=== PATIENT | female | born 1945 | race Caucasian/White ===

== ENCOUNTER 2018-04-19 11:29 | Outpatient (CLI) | payer MEDICARE, OTHER, SELFPAY ==
--- NOTE | 2018-04-19 11:40 | DI.RAD_ITS ---
SYMPTOMS/DIAGNOSIS: INFLUENZA A WITH PNEUMONIA, J09.X1, PERSISTENT COUGH AND FATIGUE, S/P TREATMENT PA AND LATERAL CHEST: Comparison 05/04/13. The heart size and pulmonary vasculature are within normal limits. There is linear atelectasis in the left lung base. No focal consolidating infiltrates are seen to suggest pneumonia. No effusions or pneumothoraces are identified. The bones appear intact. IMPRESSION: No acute pulmonary process.
[2018-04-19 12:10] LABS: HCT 40.8 % (36.0-46.0); HGB 13.4 g/dL (12.0-15.5); Mean Corp. HGB Concentration 32.8 g/dL (32.0-36.0); Mean Corpuscular Volume 91.5 fL (80-95); Mean Platelet Volume 9.5 fL (8.0-11.0); Platelet Count 401 x1000/uL (130-400); RBC 4.46 m/cumm (4.00-5.20); RBC Distribution Width 13.4 % (11.7-14.6); White Blood Cell Count 7.96 k/cumm (4.4-10.8)
[2018-04-19 12:32] LABS: Absolute Eosinophil Count 0.08 k/cumm (0.0-0.7); Absolute Lymphocyte Count 2.63 k/cumm (1.2-3.4); Absolute Monocyte Count 0.32 k/cumm (0.11-0.7); Absolute Neutrophil Count 4.86 k/cumm (1.2-6.7); Atypical Lymphocytes % 4
[2018-04-19 12:33] LABS: Diff Comment Manual Differential; RBC Morphology Normal
[2018-04-19 13:25] LABS: BUN 12 mg/dL (7-18); CREATININE 0.79 mg/dL (0.55-1.02); Calcium 10.2 mg/dL (8.5-10.1); Chloride 99 mmol/L (98-107); Glucose 92 mg/dL (70-100); Potassium 3.7 mmol/L (3.5-5.1); Sodium 139 mmol/L (136-145)
== END 2018-04-19 11:49 ==
PROVIDERS: PCP Family Medicine; Visit Provider Family Medicine
DX: J09.X1 Influenza due to identified novel influenza A virus with pneumonia (principal); R05 Cough
CPT/HCPCS: 36415; 80048; 71046; 85025

== ENCOUNTER 2018-09-08 01:00 | Outpatient (CLI) | payer MEDICARE, OTHER, SELFPAY ==
--- NOTE | 2018-09-08 12:08 | DI.MAMMO_ITS ---
SYMPTOM/DIAGNOSIS: SCREENING, Z12.31 MAMMOGRAMS: Mammograms were interpreted according to the usual protocol including computer analysis with CAD system, tomosynthesis and C view imaging. Comparison is with the prior examinations. No suspicious masses or microcalcifications are seen. The nodular density in the upper posterior left breast appears stable. There has been no significant change compared to the prior examinations. IMPRESSION: No evidence for malignancy. Yearly mammography is recommended. Category 2, breast density B. MQSA ASSESSMENT OF FINDINGS: Negative with benign findings. Category 2. Patient will receive a letter notifying them of these results. BI-RADS category B. There are scattered areas of fibroglandular density.
== END 2018-09-08 01:20 ==
PROVIDERS: PCP Family Medicine; Visit Provider Family Medicine
DX: Z12.31 Encounter for screening mammogram for malignant neoplasm of breast (principal)
CPT/HCPCS: 77063; 77067

== ENCOUNTER 2019-05-31 12:53 | Outpatient (REF) | payer MEDICARE, OTHER, SELFPAY ==
[2019-05-31 17:50] LABS: HCT 42.3 % (36.0-46.0); HGB 14.1 g/dL (12.0-15.5); Mean Corp. HGB Concentration 33.3 g/dL (32.0-36.0); Mean Corpuscular Hemoglobin 30.9 pg (27.0-33.0); Mean Corpuscular Volume 92.8 fL (80-95); Mean Platelet Volume 11.3 fL (8.0-11.0); Platelet Count 264 x1000/uL (130-400); RBC 4.56 m/cumm (4.00-5.20); White Blood Cell Count 6.03 k/cumm (4.4-10.8)
[2019-05-31 17:54] LABS: Anion Gap 8.8 mmol/L (3-11); BUN 26 mg/dL (7-18); CO2 29.2 mmol/L (21.0-32.0); CREATININE 1.15 mg/dL (0.55-1.02); Calcium 10.1 mg/dL (8.5-10.1); Chloride 101 mmol/L (98-107); Estimated GFR 46.25 (mL/min/1.73m2); Glucose 97 mg/dL (74-106); Potassium 4.1 mmol/L (3.5-5.1); Sodium 139 mmol/L (136-145)
== END 2019-05-31 13:13 ==
LOC: NCHCN 12:53
PROVIDERS: PCP Family Medicine; Visit Provider Family Medicine
DX: I10 Essential (primary) hypertension (principal); R42 Dizziness and giddiness
CPT/HCPCS: 80048; 85027

== ENCOUNTER 2019-09-04 11:33 | Outpatient (CLI) | payer MEDICARE, OTHER, SELFPAY ==
--- NOTE | 2019-09-04 | DI.RAD_ITS ---
EXAM: XR FOOT LT COMPLETE CLINICAL HISTORY: LT FOOT JOINT PAIN M79.672 TECHNIQUE: 2D digital imaging was performed. COMPARISON: No exams were available for comparison FINDINGS: Heel spurs are seen. No fractures are identified. There are mild degenerative changes and mild trent llux valgus. There is dorsal dislocation at the PIP joint of the 2nd toe IMPRESSION: Dorsal dislocation at the 2nd PIP joint.
== END 2019-09-04 11:53 ==
PROVIDERS: PCP Family Medicine; Visit Provider Nurse Practitioner Family
DX: M79.672 Pain in left foot (principal); S93.115A Dislocation of interphalangeal joint of left lesser toe(s), initial encounter; M77.32 Calcaneal spur, left foot; M19.072 Primary osteoarthritis, left ankle and foot; M20.12 Hallux valgus (acquired), left foot
CPT/HCPCS: 73630

== ENCOUNTER 2019-09-15 09:39 | Outpatient (CLI) | payer MEDICARE, OTHER, SELFPAY ==
--- NOTE | 2019-09-15 09:00 | DI.RAD_ITS ---
EXAM: XR FOOT LT COMPLETE CLINICAL HISTORY: left second toe injury; dislocation TECHNIQUE: COMPARISON: CR XR FOOT LT COMPLETE from 09/04/2019 FINDINGS: Three views were obtained. The lateral view again shows an apparent dorsal subluxation or dislocatio n of the middle phalanx of the 2nd toe from the proximal phalanx. No significant change in appearanc e comparison with prior study. Moderate degenerative changes of the joints of foot again noted with moderate hallux valgus deformity. IMPRESSION:
--- NOTE | 2019-09-15 09:45 | DI.RAD_ITS ---
EXAM: XR TOE LT SECOND CLINICAL HISTORY: f/u TECHNIQUE: COMPARISON: CR XR FOOT LT COMPLETE from 09/15/2019 FINDINGS: Six views were obtained. These are labeled as post reduction. There is now visible fracture of the medial aspect of the base of the middle phalanx of the 2nd toe. There appears to be persistent dorsa l subluxation or dislocation at the PIP joint seen on the lateral views. IMPRESSION:
== END 2019-09-15 09:59 ==
PROVIDERS: PCP Family Medicine; Referring Provider Family Medicine; Visit Provider Student in an Organized Health Care Education/Training Program
DX: S93.115A Dislocation of interphalangeal joint of left lesser toe(s), initial encounter (principal); X58.XXXA Exposure to other specified factors, initial encounter; S92.522A Displaced fracture of middle phalanx of left lesser toe(s), initial encounter for closed fracture
CPT/HCPCS: 28660; 99213; L3260; 73630; 73660

== ENCOUNTER 2019-09-19 09:39 | Outpatient (REF) | payer MEDICARE, OTHER, SELFPAY ==
[2019-09-19 14:39] LABS: Anion Gap 6.9 mmol/L (3-11); BUN 26 mg/dL (7-18); CO2 29.1 mmol/L (21.0-32.0); CREATININE 1.03 mg/dL (0.55-1.02); Chloride 98 mmol/L (98-107); Estimated GFR 52.38 (mL/min/1.73m2); Glucose 101 mg/dL (74-106); Potassium 4.4 mmol/L (3.5-5.1); Sodium 134 mmol/L (136-145)
[2019-09-19 14:55] LABS: COMMENT (LAB VIEW ONLY) 49.29 mg/dL; PROTEIN 10.6 mg/dL; Prot/Crea Ur Ratio 0.21
== END 2019-09-19 09:59 ==
LOC: NCHCN 09:39
PROVIDERS: PCP Family Medicine; Visit Provider Family Medicine
DX: N02.8 Recurrent and persistent hematuria with other morphologic changes (principal)
CPT/HCPCS: 80048; 82565; 84156

== ENCOUNTER 2019-09-28 10:38 | Outpatient (CLI) | payer MEDICARE, OTHER, SELFPAY ==
--- NOTE | 2019-09-28 10:00 | DI.RAD_ITS ---
EXAM: XR TOE LT SECOND CLINICAL HISTORY: follow up toe dislocation. TECHNIQUE: 2D digital imaging was performed. COMPARISON: CR XR TOE LT SECOND from 09/15/2019 FINDINGS: A tiny fracture fragment is again noted at the medial corner of the base of the middle phalanx of the 2nd toe. The proximal interphalangeal joint space appears slightly widened. There is no dislocatio n. . DATA REPOSITORY: RADIATION DOSE DELIVERED:
== END 2019-09-28 10:58 ==
PROVIDERS: PCP Family Medicine; Referring Provider Family Medicine
DX: S93.11 Dislocation of interphalangeal joint (principal); X58.XXXD Exposure to other specified factors, subsequent encounter; S92.912D Unspecified fracture of left toe(s), subsequent encounter for fracture with routine healing
CPT/HCPCS: 99213; 73660

== ENCOUNTER 2020-01-19 10:49 | Outpatient (CLI) | payer MEDICARE, OTHER, SELFPAY ==
--- NOTE | 2020-01-19 08:45 | DI.RAD_ITS ---
EXAM: XR TOE LT SECOND CLINICAL HISTORY: f/u fracture dislocation of L 2nd PIP, cont'd pain. TECHNIQUE: 2D digital imaging was performed. COMPARISON: No exams were available for comparison FINDINGS: BONES: The nondisplaced fracture at the medial aspect of the base of the middle phalanx of the 2nd t oe is again noted. A remains nonunited. There is a triangular fragment at the lateral aspect of the head of the proximal phalanx of the 2nd toe which may represent a displaced fracture. This is of in determinate acuity. No other fracture or dislocation is identified. No bony destructive lesion is s een. JOINTS: No dislocation present. SOFT TISSUE: Normal. IMPRESSION: Fractures involving the left 2nd toe as described above. DATA REPOSITORY: RADIATION DOSE DELIVERED:
== END 2020-01-19 11:09 ==
PROVIDERS: PCP Family Medicine; Referring Provider Family Medicine; Visit Provider Student in an Organized Health Care Education/Training Program
DX: S92.592A Other fracture of left lesser toe(s), initial encounter for closed fracture (principal); S93.105D Unspecified dislocation of left toe(s), subsequent encounter; S92.502D Displaced unspecified fracture of left lesser toe(s), subsequent encounter for fracture with routine healing; X58.XXXD Exposure to other specified factors, subsequent encounter; I10 Essential (primary) hypertension
CPT/HCPCS: 99213; 73660

== ENCOUNTER 2020-04-17 18:30 | Outpatient (REF) | payer MEDICARE, OTHER, SELFPAY ==
[2020-04-17 15:57] LABS: HCT 42.5 % (36.0-46.0); HGB 14.2 g/dL (11.2-15.7); MCH 30.9 pg (27.0-33.0); MCHC 33.4 % (32.0-36.0); MCV 92.4 fL (80-95); Platelet Count 259 10^3/uL (130-400); RDW 12.7 % (11.7-14.6); RDW-SD 43.3 fL; WBC 5.89 10^3/uL (4.4-10.8)
[2020-04-17 16:02] LABS: Anion Gap 8.5 mmol/L (3-11); BUN 29 mg/dL (7-18); CO2 28.5 mmol/L (21.0-32.0); CREATININE 1.1 mg/dL (0.55-1.02); Calcium 10.6 mg/dL (8.5-10.1); Chloride 101 mmol/L (98-107); Estimated GFR 48.55 (mL/min/1.73m2); Glucose 103 mg/dL (74-106); Magnesium 1.7 mg/dL (1.8-2.4); Potassium 3.7 mmol/L (3.5-5.1); Sodium 138 mmol/L (136-145)
== END 2020-04-17 18:31 | disposition home or self-care (01) ==
LOC: NCHCN 18:30
PROVIDERS: PCP Family Medicine; Visit Provider Family Medicine
DX: I10 Essential (primary) hypertension (principal); N02.8 Recurrent and persistent hematuria with other morphologic changes; R42 Dizziness and giddiness
CPT/HCPCS: 80048; 85027; 83735

== ENCOUNTER 2020-04-25 01:43 | Outpatient (CLI) | payer MEDICARE, OTHER, SELFPAY ==
--- NOTE | 2020-04-25 11:35 | DI.MAMMO_ITS ---
EXAM: MG MAMMO SCREENING CLINICAL HISTORY: SCREENING, [facility],Z00.00. TECHNIQUE: Bilateral full field digital CC and MLO mammographic images were obtained with 3D tomosyn thesis and utilizing computer aided detection (CAD). COMPARISON: Prior mammograms dating back to 2010, the most recent being August 2018. FINDINGS: There is an unchanged stable appearing noncalcified nodule in the mid left breast, unchanged from 201 1 and therefore benign. There is also an unchanged smaller benign-appearing nodule in the opposite-r ight breast which is also unchanged from prior studies and therefore benign. There are no spiculated masses nor malignant appearing microcalcification groups. There is no signif icant architectural distortion nor skin thickening-retraction. IMPRESSION: Stable benign findings. No radiographic evidence of malignancy. BI-RADS Category 2 - Benign Findings Breast Density - Category B - Scattered areas of fibroglandular density Breast density Category C or D implies that the patient has dense breast tissue. Dense breast tissue can make it harder to find cancer on a mammogram. Dense breast tissue is also associated with an incr eased risk of breast cancer. This information about the result of the mammogram report was provided to the patient to raise their awareness. Use this report when you speak with the patient about their risks for breast cancer, which includes their family history. At that time, you may recommend additional screening tests (Ultrasoun d or MRI) as these tests may add significant information. A negative radiographic report should not delay biopsy if a dominant or clinically suspicious mass is present. Up to ten percent of cancers are not identified on mammography. A negative report may reinforce clinical impression. Adenosis and dense breasts may obscure an underlying neoplasm. False positive reports average 6 to 10%. Patient will receive a letter notifying them of these results.
== END 2020-04-25 01:44 ==
LOC: DI 01:44
PROVIDERS: PCP Family Medicine; Visit Provider Family Medicine
DX: Z12.31 Encounter for screening mammogram for malignant neoplasm of breast (principal)
CPT/HCPCS: 77063; 77067

== ENCOUNTER 2020-05-15 16:00 | Outpatient (REF) | payer MEDICARE, OTHER, SELFPAY ==
[2020-05-15 18:07] LABS: Albumin 4.1 g/dL (3.4-5.0); Anion Gap 8.7 mmol/L (3-11); BUN 23 mg/dL (7-18); CO2 30.3 mmol/L (21.0-32.0); CREATININE 1.4 mg/dL (0.55-1.02); Calcium 10.4 mg/dL (8.5-10.1); Chloride 102 mmol/L (98-107); Estimated GFR 36.76 (mL/min/1.73m2); Glucose 80 mg/dL (74-106); Magnesium 1.9 mg/dL (1.8-2.4); Potassium 4.2 mmol/L (3.5-5.1); Sodium 141 mmol/L (136-145)
[2020-05-15 18:18] LABS: PROTEIN < 6.0 mg/dL
[2020-05-15 18:26] LABS: COMMENT (LAB VIEW ONLY) 49.79 mg/dL
== END 2020-05-15 16:01 | disposition home or self-care (01) ==
LOC: NCHCN 16:00
PROVIDERS: PCP Family Medicine; Visit Provider Family Medicine
DX: E83.52 Hypercalcemia (principal); N02.8 Recurrent and persistent hematuria with other morphologic changes; E83.42 Hypomagnesemia
CPT/HCPCS: 80048; 82040; 82565; 83735; 84156

== ENCOUNTER 2020-06-24 04:18 | Outpatient (CLI) | payer MEDICARE, OTHER, SELFPAY ==
[2020-06-24 11:10] LABS: Anion Gap 10.3 mmol/L (3-11); BUN 17 mg/dL (7-18); CO2 27.7 mmol/L (21.0-32.0); Calcium 10.4 mg/dL (8.5-10.1); Chloride 105 mmol/L (98-107); Glucose 104 mg/dL (74-106); Potassium 4.7 mmol/L (3.5-5.1); Sodium 143 mmol/L (136-145)
[2020-06-24 16:11] LABS: Ionized Calcium 1.25 mmol/L (1.12-1.32)
[2020-06-25 12:00] LABS: Parathyroid Hormone,Intact 31 pg/mL (19-88)
== END 2020-06-24 04:19 | disposition home or self-care (01) ==
LOC: LBO 04:18
PROVIDERS: PCP Family Medicine; Visit Provider Family Medicine
DX: E83.52 Hypercalcemia (principal); N02.8 Recurrent and persistent hematuria with other morphologic changes; I10 Essential (primary) hypertension
CPT/HCPCS: 36415; 80048; 82330; 83970

== ENCOUNTER 2020-07-25 01:14 | Outpatient (CLI) | payer MEDICARE, OTHER, SELFPAY ==
--- NOTE | 2020-07-25 | DI.DEXA_ITS ---
Exam(s) XR DEXA BONE DENSITY W/WO CLAUDIO EXAM: XR DEXA BONE DENSITY W/WO CLAUDIO CLINICAL HISTORY: OTHER DISORDER BONE DENSITY,M85.88 TECHNIQUE: [employer] C densitometer COMPARISON: 25 August 2016 FINDINGS: Lateral view of the thoracic and lumbar spine shows no evidence of compression fractures. Bone mineral density measurements of the lumbar spine correspond to a total T-score of -1.3, in the o steopenic range. This is not significantly changed from 2017. Bone mineral density measurements of the left hip correspond to a total T-score of -1.4. The femora l neck T-score is -1.6, in the osteopenic range. This represents a 2.2 percent decrease when compar ed with the previous exam which is not statistically significant.. The left forearm bone mineral density measurements correspond to a T-score of the distal 3rd of -2.8, in the osteoporotic range. There has been 9.4 percent decrease in bone mineral density measurements when compared with the previous exam . IMPRESSION: Osteopenia of the lumbar spine and left hip without significant change. Osteoporosis of the left for earm with 9.4 percent decrease in density when compared with 2017.
== END 2020-07-25 01:34 ==
PROVIDERS: PCP Family Medicine; Visit Provider Family Medicine
DX: M81.0 Age-related osteoporosis without current pathological fracture (principal); M85.88 Other specified disorders of bone density and structure, other site
CPT/HCPCS: 77080

== ENCOUNTER 2021-03-12 20:32 | Outpatient (REF) | payer MEDICARE, OTHER, SELFPAY ==
[2021-03-12 20:42] LABS: COMMENT (LAB VIEW ONLY) 94.57 mg/dL; PROTEIN 7.9 mg/dL; Prot/Crea Ur Ratio 0.08
== END 2021-03-12 20:33 | disposition home or self-care (01) ==
LOC: LBN 20:32
PROVIDERS: PCP Family Medicine; Visit Provider Family Medicine
DX: N02.8 Recurrent and persistent hematuria with other morphologic changes (principal)
CPT/HCPCS: 82565; 84156

== ENCOUNTER 2021-04-28 12:42 | Outpatient (REF) | payer MEDICARE, OTHER, SELFPAY ==
[2021-04-28 16:54] LABS: ALT 18 U/L (14-59); AST 17 U/L (15-37); Alkaline Phosphatase 87 U/L (46-116); Anion Gap 10.3 mmol/L (3-11); BUN 20 mg/dL (7-18); Bilirubin, Total 0.7 mg/dL (0.2-1.0); CO2 25.7 mmol/L (21.0-32.0); Calcium 9.6 mg/dL (8.5-10.1); Chloride 102 mmol/L (98-107); Estimated GFR 54.05 (mL/min/1.73m2); Glucose 91 mg/dL (74-106); Magnesium 2.1 mg/dL (1.8-2.4); Potassium 4.2 mmol/L (3.5-5.1); Sodium 138 mmol/L (136-145); Total Protein 7.4 g/dL (6.4-8.2)
== END 2021-04-28 12:43 | disposition home or self-care (01) ==
LOC: NCHCN 12:42
PROVIDERS: PCP Family Medicine; Visit Provider Family Medicine
DX: E83.42 Hypomagnesemia (principal); E83.52 Hypercalcemia; N02.8 Recurrent and persistent hematuria with other morphologic changes
CPT/HCPCS: 80053; 83735

== ENCOUNTER 2022-02-11 14:30 | Outpatient (REF) | payer MEDICARE, OTHER, SELFPAY | END 2022-02-11 14:31 | disposition home or self-care (01) | LOC: LBN 14:30 | PROVIDERS: PCP Family Medicine; Visit Provider Physician Assistant Medical | DX: K65.1 Peritoneal abscess (principal) | CPT/HCPCS: 87070; 87205 ==

== ENCOUNTER → 2022-03-04 10:57 | Outpatient (BNVA) | payer MEDICARE, OTHER, SELFPAY | PROVIDERS: PCP Family Medicine; Referring Provider Family Medicine; Visit Provider Physical Therapy Assistant | DX: L02.211 Cutaneous abscess of abdominal wall (principal) | CPT/HCPCS: 99213 ==

== ENCOUNTER 2022-04-13 16:07 | Outpatient (REF) | payer MEDICARE, OTHER, SELFPAY ==
[2022-04-13 15:29] LABS: HCT 43.1 % (36.0-46.0); HGB 14.2 g/dL (11.2-15.7); MCH 30.8 pg (27.0-33.0); MCHC 32.9 % (32.0-36.0); MCV 94 fL (80-95); MPV 10.8 fL (8.0-11.0); Platelet Count 255 10^3/uL (130-400); RBC 4.61 10^6/uL (3.93-5.22); RDW 12.7 % (11.7-14.6); RDW-SD 43.6 fL; WBC 6.09 10^3/uL (4.4-10.8)
[2022-04-13 16:15] LABS: ALT 12 U/L (14-59); AST 17 U/L (15-37); Albumin 3.9 g/dL (3.4-5.0); Alkaline Phosphatase 91 U/L (46-116); Anion Gap 9.8 mmol/L (3-11); BUN 16 mg/dL (7-18); Bilirubin, Total 0.8 mg/dL (0.2-1.0); CO2 27.2 mmol/L (21.0-32.0); CREATININE 0.9 mg/dL (0.55-1.02); Calcium 9.7 mg/dL (8.5-10.1); Chloride 102 mmol/L (98-107); Estimated GFR 66.26 (mL/min/1.73m2); Glucose 116 mg/dL (74-106); Magnesium 2.1 mg/dL (1.8-2.4); NT-proBNP 269 pg/mL (<300); Potassium 4.2 mmol/L (3.5-5.1); Sodium 139 mmol/L (136-145); Total Protein 7.3 g/dL (6.4-8.2)
== END 2022-04-13 16:08 | disposition home or self-care (01) ==
LOC: NCHCN 16:07
PROVIDERS: PCP Family Medicine; Visit Provider Family Medicine
DX: R06.09 Other forms of dyspnea (principal); E83.42 Hypomagnesemia; E83.52 Hypercalcemia; I10 Essential (primary) hypertension
CPT/HCPCS: 80053; 85027; 83735; 83880

== ENCOUNTER 2022-04-27 01:09 | Outpatient (CLI) | payer MEDICARE, OTHER, SELFPAY ==
--- NOTE | 2022-04-27 | DI.MAMMO_ITS ---
Exam(s) MAMMO SCREENING EXAM: MAMMO SCREENING CLINICAL HISTORY: [facility] Z00.00, SCREENING FOR BREAST CANCER TECHNIQUE: Bilateral full field digital CC and MLO mammographic images were obtained with 3D tomosyn thesis and utilizing computer aided detection (CAD). COMPARISON: Available for comparison. FINDINGS: Masses/Architectural Distortion: There are stable well-circumscribed nodules in both breasts. No reddy picious nodules or areas of architectural distortion are present. Microcalcifications: No suspicious pleomorphic-type are seen. Skin Thickening/Nipple Retraction: None. IMPRESSION: 1. No significant interval change with no specific features of malignancy noted. 2. Unless there is more urgent need, screening mammography is recommended, as per [employer] guidelines. BI-RADS Category 2 - Benign Findings Breast Density - Category B - Scattered areas of fibroglandular density Breast density category C or D implies that the patient has dense breast tissue. Dense breast tissue is very common and is not abnormal but dense breast tissue can make it harder to find cancer on a ma mmogram. Also, dense breast tissue may increase their breast cancer risk. This information about the result of the mammogram report was provided to the patient to raise their awareness. Use this report when you speak with the patient about their risks for breast cancer, which includes their family hist ory. At that time, you may recommend for more screening tests (Ultrasound or MRI) as they might be us eful based on their risk. A negative radiographic report should not delay biopsy if a dominant or clinically suspicious mass is present. Up to ten percent of cancers are not identified on mammography. A negative report may reinforce clinical impression. Adenosis and dense breasts may obscure an underlying neoplasm. False positive reports average 6 to 10%. Patient will receive a letter notifying them of these results.
== END 2022-04-27 01:29 ==
LOC: DI 01:09
PROVIDERS: PCP Family Medicine; Visit Provider Family Medicine
DX: Z12.31 Encounter for screening mammogram for malignant neoplasm of breast (principal)
CPT/HCPCS: 77063; 77067

== ENCOUNTER 2022-05-15 11:33 | Outpatient (REF) | payer MEDICARE, OTHER, SELFPAY ==
[2022-05-15 18:08] LABS: Calculated LDL 170 mg/dL (<100); Cholesterol 281 mg/dL (<200); HDL Cholesterol 99 mg/dL (40-60); Triglyceride 63 mg/dL (<150)
== END 2022-05-15 11:34 | disposition home or self-care (01) ==
LOC: NCHCN 11:33
PROVIDERS: PCP Family Medicine; Visit Provider Nurse Practitioner Family
DX: E78.5 Hyperlipidemia, unspecified (principal)
CPT/HCPCS: 80061

== ENCOUNTER 2022-05-19 15:09 | Outpatient (REF) | payer MEDICARE, OTHER, SELFPAY | END 2022-05-19 15:10 | disposition home or self-care (01) | LOC: LBN 15:09 | PROVIDERS: PCP Family Medicine; Visit Provider Nurse Practitioner Family | DX: L08.89 Other specified local infections of the skin and subcutaneous tissue (principal) | CPT/HCPCS: 87077; 87070; 87186; 87205 ==

== ENCOUNTER 2022-07-14 11:56 | Outpatient (CLI) | payer MEDICARE, OTHER, SELFPAY ==
--- NOTE | 2022-07-14 | DI.RAD_ITS ---
Exam(s) XR KNEE RT 3V AP,LAT,JUMANA EXAM: XR KNEE RT 3V AP,LAT,JUMANA CLINICAL HISTORY: RT KNEE PAIN, M25.561. TECHNIQUE: 2D digital imaging was performed of the right knee. Three views obtained. AP, lateral an d PA tunnel views were obtained. COMPARISON: No priors for comparison. FINDINGS: BONES: No acute fracture is present. No bony destructive lesion is seen. There is an enthesophyte at the superior patella. JOINTS: The knee is normally aligned. No joint effusion is seen. SOFT TISSUE: Normal. IMPRESSION: No acute abnormality. DATA REPOSITORY: RADIATION DOSE DELIVERED:
== END 2022-07-14 12:16 ==
LOC: DI 11:57
PROVIDERS: PCP Family Medicine; Visit Provider Nurse Practitioner Family
DX: M25.561 Pain in right knee (principal)
CPT/HCPCS: 73562

== ENCOUNTER 2022-07-30 13:10 | Outpatient (CLI) | payer MEDICARE, OTHER, SELFPAY ==
--- NOTE | 2022-07-30 | DI.RAD_ITS ---
Exam(s) XR FOOT RT COMPLETE EXAM: XR FOOT RT COMPLETE CLINICAL HISTORY: GREAT TOE PAIN M79.676, TENDER AFTER TRAUMA. TECHNIQUE: 2D digital imaging was performed. COMPARISON: CR XR TOE LT SECOND from 01/19/2020 FINDINGS: 3 views No evidence of acute fracture nor diastasis of the Lisfranc joint. No radiopaque foreign body. No o sseous lesions. IMPRESSION: No obvious fractures. If clinically indicated dedicated views of the great toe can be performed. Th is may sometimes reveal fractures not evident on entire foot plain films. DATA REPOSITORY: RADIATION DOSE DELIVERED:
== END 2022-07-30 13:30 ==
LOC: DI 13:14
PROVIDERS: PCP Family Medicine; Visit Provider Family Medicine
DX: M79.674 Pain in right toe(s) (principal); S90.931A Unspecified superficial injury of right great toe, initial encounter; X58.XXXA Exposure to other specified factors, initial encounter
CPT/HCPCS: 73630

== ENCOUNTER 2023-10-28 13:07 | Outpatient (CLI) | payer MEDICARE, OTHER, SELFPAY ==
[2023-10-28 13:28] LABS: Calculated LDL 145 mg/dL (<100); Cholesterol 253 mg/dL (<200); Estimated GFR 57.66 (mL/min/1.73m2); HDL Cholesterol 90 mg/dL (40-60); Potassium 4.3 mmol/L (3.5-5.1); Triglyceride 90 mg/dL (<150)
[2023-10-28 14:05] LABS: Hemoglobin A1C 5.5 % (<5.7)
== END 2023-10-28 13:08 | disposition home or self-care (01) ==
LOC: LBO 13:08
PROVIDERS: PCP Nurse Practitioner Family; Visit Provider Nurse Practitioner Family
DX: Z13.1 Encounter for screening for diabetes mellitus (principal); N02.B9 Other recurrent and persistent immunoglobulin A nephropathy; Z13.6 Encounter for screening for cardiovascular disorders
CPT/HCPCS: 36415; 80061; 82565; 83036; 84132

== ENCOUNTER 2024-11-07 10:27 | Outpatient (CLI) | payer MEDICARE, OTHER, SELFPAY ==
--- NOTE | 2024-11-07 06:26 | DI.MAMMO_ITS ---
Exam(s) MAMMO SCREENING EXAM: MAMMO SCREENING CLINICAL HISTORY: screening,Z12.39. TECHNIQUE: Bilateral full field digital CC and MLO mammographic images were obtained with 3D tomosynthesis and utilizing computer aided detection (CAD). COMPARISON: Prior mammograms dating back to 2016 were reviewed. FINDINGS: There has been no significant change in the appearance and distribution of the fibroglandular tissue. Stable benign-appearing nodules in both breasts are again noted, unchanged in size. One of the small benign-appearing nodules in the right breast has acquired some internal calcification and is most probably of all fibroadenoma. There are no new spiculated masses nor new malignant appearing microcalcification groups. There is no significant architectural distortion nor skin thickening-retraction. IMPRESSION: Stable benign findings. No radiographic evidence of malignancy. BI-RADS Category 2 - Benign Findings Breast Density - Category B - There are scattered areas of fibroglandular density. Breast density Category C or D implies that the patient has dense breast tissue. Dense breast tissue can make it harder to find cancer on a mammogram. Dense breast tissue is also associated with an increased risk of breast cancer. This information about the result of the mammogram report was provided to the patient to raise their awareness. Use this report when you speak with the patient about their risks for breast cancer, which includes their family history. At that time, you may recommend additional screening tests (Ultrasound or MRI) as these tests may add significant information. A negative radiographic report should not delay biopsy if a dominant or clinically suspicious mass is present. Up to ten percent of cancers are not identified on mammography. A negative report may reinforce clinical impression. Adenosis and dense breasts may obscure an underlying neoplasm. False positive reports average 6 to 10%. Patient will receive a letter notifying them of these results.
== END 2024-11-07 10:47 ==
LOC: DI 10:28
PROVIDERS: PCP Nurse Practitioner Family; Visit Provider Nurse Practitioner Family
DX: Z12.31 Encounter for screening mammogram for malignant neoplasm of breast (principal); R92.323 Mammographic fibroglandular density, bilateral breasts
CPT/HCPCS: 77063; 77067

== ENCOUNTER 2024-11-07 11:56 | Outpatient (CLI) | payer MEDICARE, OTHER, SELFPAY ==
[2024-11-07 12:05] LABS: Hemoglobin A1C 5.1 % (<5.7)
[2024-11-07 12:25] LABS: Anion Gap 8.0 mmol/L (3-11); BUN 17 mg/dL (7-18); CO2 30.0 mmol/L (21.0-32.0); Calcium 9.8 mg/dL (8.5-10.1); Calculated LDL 127 mg/dL (<100); Chloride 101 mmol/L (98-107); Cholesterol 232 mg/dL (<200); Estimated GFR 51.11 (mL/min/1.73m2); Glucose 97 mg/dL (74-106); HDL Cholesterol 95 mg/dL (>or=50); Potassium 3.8 mmol/L (3.5-5.1); Sodium 139 mmol/L (136-145); Triglyceride 54 mg/dL (<150)
== END 2024-11-07 11:57 | disposition home or self-care (01) ==
LOC: LBO 11:56
PROVIDERS: PCP Nurse Practitioner Family; Visit Provider Nurse Practitioner Family
DX: Z13.1 Encounter for screening for diabetes mellitus (principal); Z13.6 Encounter for screening for cardiovascular disorders
CPT/HCPCS: 36415; 77063; 77067; 80048; 80061; 83036

== ENCOUNTER → 2025-01-18 11:04 | Outpatient (BNVA) | payer MEDICARE, OTHER, SELFPAY | PROVIDERS: PCP Nurse Practitioner Family; Referring Provider Nurse Practitioner Family; Visit Provider Physical Therapy Assistant | DX: Z12.11 Encounter for screening for malignant neoplasm of colon (principal) ==

== ENCOUNTER 2025-01-31 10:51 | Day surgery (SDC) | payer MEDICARE, OTHER, SELFPAY ==
[2025-01-31 11:13] VITALS: BP 151/80; PULSE 100; RESP 18; TEMP 36.7; O2SAT 98
[2025-01-31] MEDS: Lactated Ringers 1,000 ML 80 ML IV (11:41)
--- NOTE | 2025-01-31 12:26 | W.ANESPRE ---
General Info Date of Service Date Performed: 01/31/25 Height: 5 ft 3 in Weight: 68.7 kg Body Mass Index (BMI): 26.8 Surgical Procedure: Operation Date: 01/31/25 12:50 Proposed Procedure Side Surgeon p Colonoscopy Shira Ware MD Meds Allergies and Home Medications Allergies Allergy/AdvReac Type Severity Reaction Status Date / Time propoxyphene HCl (From Allergy Severe Skin Rash Verified 01/31/25 11:10 Darvon) adhesive Allergy Intermediate Other (See Verified 01/31/25 11:10 Comment) Home Medication ?Medication ?Instructions ?Recorded multivitamin 1 cap PO DAILY 05/04/13 omega-3 fatty acids 300 mg capsule 1 cap PO DAILY 05/04/13 (Fish Oil) magnesium oxide 250 mg PO DAILY 02/27/22 valsartan 160 mg tablet 160 mg PO DAILY #90 tabs 10/25/24 bisacodyl 5 mg tablet,delayed 5 mg PO ONCE Colonoscopy Bowel 01/18/25 release Prep #4 tabs polyethylene glycol 3350 17 238 g PO ONCE #238 grams 01/18/25 gram/dose oral powder Current Visit Medications: Current Medications Generic Name Dose Route Start Last Admin Trade Name Freq PRN Reason Stop Dose Admin Ringer's Solution 1,000 mls @ 80 mls/hr 01/31/25 06:00 01/31/25 11:41 IV 01/31/25 23:59 80 mls/hr INFUSION NATE Administration Sodium Chloride 0 ml 01/31/25 06:00 Normal Saline Flush 10 Ml Syr IV 01/31/25 23:59 PRN PRN Sodium Chloride 0 ml 01/31/25 06:00 Normal Saline 10 Ml Vial IJ 01/31/25 23:59 DIRECTED PRN Sterile Water 0 ml 01/31/25 06:00 Water,Injection,Sterile 10 Ml Vial IJ 01/31/25 23:59 DIRECTED PRN PFSH Active Problems Active Problems: Problem Status Onset Code Positive colorectal cancer screening using Cologuard test Acute R19.5 Hyperlipidemia Acute Hypertension Chronic GERD without esophagitis Acute K21.9 Obesity Chronic E66.9 Hypersensitivity angiitis Acute M31.0 IgA nephropathy Acute N02.B9 Senile osteoporosis Acute M81.0 Infected sebaceous cyst Acute L72.3, L08.9 Abdominal wall abscess Acute L02.211 Fracture of second toe, left, closed Acute S92.502A Dislocation of toe, left, closed Acute 09/02/19 S93.105A Medical History Medical History 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 No HRT. Hx of cervical cancer MARIA DE JESUS (obstructive sleep apnea) History of tobacco abuse Surgical History Surgical History Skin Cancer Removal excision of melanoma. section Abdominal hysterectomy 40yo ANDREW/BSO for cervical CA. Limited course of HRT after surgery. Colonoscopy - MAC (03/10/17) Appendectomy Tobacco Smoking/Tobacco Use Status: Former Tobacco Use Passive smoking exposure: Yes Second hand exposure: No Alcohol Alcohol Intake: current Alcohol intake frequency: 0-2 drinks per day Alcohol type: wine Substance Use Substance use: Never Vital Signs and Lab Results Vital Signs Most Recent Vital Signs in EMR: Most Recent Vital Signs Temp Pulse Resp BP Pulse Ox 36.7 C 100 H 18 151/80 H 98 01/31/25 11:13 01/31/25 11:13 01/31/25 11:13 01/31/25 11:13 01/31/25 11:13 Anesthesia Assessment and Plan Anesthesia History Personal History: No History of General Anesthesia Family History: No Family History of Anesthesia Complications Exercise Tolerance Exercise Tolerance: Metabolic Equivalents>4 Pertinent Negatives Pertinent Negatives: No Symptoms of GERD, No Major Cardiovascular Symptoms or Complaints and No Major Pulmonary Symptoms or Complaints Cardiac & Pulmonary Exam Cardiac Exam: Normal S1/S2 Heart Sounds Pulmonary Exam: Clear Bilateral Breath Sounds Implantable Cardiac Device Does patient have a Pacemaker or an ICD?: No Airway Exam Known Difficult Airway: No Mallampati Class: 3 Mouth Opening: Normal (> 3cm) Thyromental Distance: Less than 3 cm Neck Range of Motion: Full ROM Neck Circumference: Normal Teeth Condition: Normal Dentition ASA Classification ASA Score: ASA 2 Emergency Case?: No NPO Status NPO Status: NPO Clears >2 hours, Solids >8 hours Anesthesia Plan Resuscitation Status: Full Code Anesthesia Technique: General Anesthesia Airway Planned: Natural Airway Monitors Used: Standard Monitors
[2025-01-31 12:27] VITALS: BMI 26.8
--- NOTE | 2025-01-31 13:10 | BOWEL_PTH ---
PATIENT: Jacki Zaldivar LOC: [facility] U#:[id number] AGE/SX: 79/F ROOM: RE01/31/[address]: Shira Ware : 1945 BED: DIS: 01/31/2025 SPEC #: [id number] RECD: 01/31/25 17:53 STATUS: ALFONZO REQ #: [id number] SUBHA: 01/31/25 13:[address]: Shira Ware DEPT: Surgical Specimen RECD BY: Annie Armijo ENTERED: 01/31/25 17:53 SP TYPE: Bowel OTHR DR: Sergey Huff, RANDAL Tissues: 1 - BIOPSY BOWEL Procedures: GROSS AND MICRO LEVEL 4 Comments: [id number]
--- NOTE | 2025-01-31 13:22 | W.PM.DSUDISC ---
Date of service: 01/31/25 Discharge Plan Disposition Patient Disposition: Home Condition: Good Discharge Details Reason For Visit: Positive cologuard Attending Provider: Shira Ware Primary Care Provider: Sergey Huff Recommendations for Follow Up Recommended tests to be ordered by follow up provider: Follow up pathology Home Meds and New Rx's Prescriptions: Continued valsartan 160 mg tablet 160 mg PO DAILY Qty: 90 3RF magnesium oxide 250 mg magnesium tablet 250 mg PO DAILY multivitamin 1 EACH capsule 1 cap PO DAILY Fish Oil 300 MG capsule 1 cap PO DAILY Discontinued bisacodyl 5 mg tablet,delayed release (DR/EC) 5 mg PO ONCE Qty: 4 0RF Rx Instructions: Per Colonoscopy bowel prep instructions polyethylene glycol 3350 17 gram/dose powder 238 g PO ONCE Qty: 238 0RF Rx Instructions: For Colonoscopy bowel prep, as directed by office Discharge Instructions Instructions: Diverticulosis Additional Instructions: Your colonoscopy went well today. You did have evidence of 1 small polyp which was removed. We will send this polyp to pathology. Once these results return we will contact you regarding recommendations for a repeat colonoscopy if indicated. You also had evidence of diverticulosis or little outpouchings of the colon. Please contact the surgery office in the interim if you have any questions or concerns. 1. If tolerated, consume a soft, low fiber diet for 1-2 days. 2. Do not drive, drink alcohol, operate machinery, make critical decisions, or do activities that require coordination or balance for 24 hours. 3. Because air was put into your colon during the procedure, expelling air from your rectum (passing gas or farting) is normal. 4. You may not have a bowel movement for 1-3 days because of the colonoscopy prep. This is normal. 5. Go directly to the emergency room if you notice any of the following: Develop chills (warm to touch), or if you have a thermometer and your temperature is above 101 Difficulty breathing or difficultly swallowing Persistent vomiting Severe abdominal pain, other than gas cramps Severe chest pain Black, tarry stools Any bleeding ? exceeding one tablespoon 6. Call your physician if the site where your intravenous was started becomes red, swollen, painful, and warm to touch. 7. Your physician has reviewed your pre-procedure medications. Please continue to take those medications as previously ordered. You will be given specific information/education regarding any changes to your medications before leaving. Stand Alone Forms: Portal Information Activity:: Activity as Tolerated Diet:: As Tolerated Discharge Orders Discharge Orders: Discharge Order (Routine); Ordered 01/31/25 Ordered By: Shira Ware
[2025-01-31 13:25] VITALS: BP 101/61; PULSE 93; RESP 18; TEMP 36.5; O2SAT 97
--- NOTE | 2025-01-31 13:26 | W.COLOREPORT ---
Date of service: 01/31/25 Time of Service: 13:26 Colonoscopy Report Date of procedure: 01/31/25 Pre-op diagnosis general: Positive cologuard Post-op diagnosis procedure note: other (Colon polyps ) Procedure: Colonoscopy with polypectomy Surgeon: Shira Ware Anesthesia Type: General:No Airway Estimated blood loss (mL): 1 Pathology: other (Cecal polyp) Complications: None Disposition: PACU Indications: Patient is a 79-year-old female who presented to the clinic with a positive Cologuard test. She has a personal history of colon polyps. A colonoscopy was discussed with her including the risks and benefits and consent was obtained prior to the procedure. Prep: Miralax/Dulcolax Procedure Start Time: 12:51 Procedure End Time: 13:17 Retraction Time: 10 Findings: Small cecal polyp removed with cold forceps. Evidence of pandiverticulosis. Evidence of external perianal skin tags and hemorrhoids. Procedure Description: The patient was brought to the endoscopy suite and placed in the left lateral decubitus position. After induction of IV sedation, a digital rectal exam was performed. Digital exam was normal. There was evidence of external perianal skin tags. The colonoscope was then passed to the cecum without difficulty. Cecal intubation was confirmed by the identification of the appendiceal orifice and the ileocecal valve. Upon withdrawing the colonoscope, all mucosal surfaces were inspected. The prep was noted to be adequate. In the cecum, there was a small polyp, which was removed using cold forceps in its entirety. Specimen was retrieved for pathological analysis. There was no other evidence of mucosal abnormality, polyp or cancer. There was evidence of diverticulosis throughout the colon. Retroflexion in the rectum showed evidence of hemorrhoids. The patient tolerated the procedure well with no complications. Postoperatively, the patient was transferred to the recovery room in stable condition. Carver Bowel Prep Carver Bowel Prep Right Colon: 3 Left Colon: 3 Transverse Colon: 3 Total Score: 9
[2025-01-31 13:55] VITALS: BP 107/67; PULSE 86; RESP 18; TEMP 36.2; O2SAT 98
--- NOTE | 2025-01-31 14:27 | W.ANESPOSTOP ---
Postoperative Evaluation Date, Time and Location Date Performed: 01/31/25 Time Performed: 13:55 Patient Location: Day Surgery Unit Vital Signs Most Recent Imported Vital Signs: Most Recent Vital Signs Temp Pulse Resp BP Pulse Ox 36.2 C L 86 18 107/67 98 01/31/25 13:55 01/31/25 13:55 01/31/25 13:55 01/31/25 13:55 01/31/25 13:55 Pain Score Most Recent Pain Score: Most Recent Pain Score Pain Level 0 01/31/25 13:55 Assessment Mental Status: Awake (Alert & Oriented to Patient Baseline) Airway and Respiratory Function: Patent airway with normal (patient baseline) respiratory exam Cardiovascular Function: Hemodynamically Stable Hydration Status: Adequately Hydrated Nausea & Vomiting: No Nausea or Vomiting Pain: Pt. Denies Any Pain Peripheral Nerve Block: Patient did not receive a nerve block
== END 2025-01-31 14:10 | disposition home or self-care (01) ==
PROVIDERS: PCP Nurse Practitioner Family; Visit Provider Student in an Organized Health Care Education/Training Program
PROC: 0DJD8ZZ Inspection of Lower Intestinal Tract, Via Natural or Artificial Opening Endoscopic (ICD-10-PCS; CPT 45378; principal; 2025-01-31 12:45)
DX: Z12.11 Encounter for screening for malignant neoplasm of colon (principal); K63.5 Polyp of colon; R19.5 Other fecal abnormalities; K21.9 Gastro-esophageal reflux disease without esophagitis; I10 Essential (primary) hypertension
CPT/HCPCS: 45380; 88305; J2003; J2704